=== PATIENT | female | born 1990 | race Caucasian/White ===

== ENCOUNTER 2021-01-18 06:29 | Inpatient (IN) | payer SELFPAY ==
[2021-01-18] MEDS: Lactated Ringers 1,000 ML IV SCH ×2 (06:40→09:02)
[2021-01-18] MEDS ORDERED: Sodium Chloride 0.9% 2.5 ML Syringe FLUSH PRN (07:06)
[2021-01-18] MEDS ORDERED: Lidocaine 1% 50 ML MDV INJECT PRN (07:06)
[2021-01-18] MEDS ORDERED: Methylergonovine 0.2 MG/1 ML Amp IM PRN (07:06)
[2021-01-18] MEDS ORDERED: Tranexamic Acid 1,000 MG in Sodium Chloride 0.9% 100 ML IV PRN (07:06)
[2021-01-18] MEDS ORDERED: Butorphanol 1 MG/ML SDV IVPUSH PRN (07:06)
[2021-01-18] MEDS ORDERED: Sodium Chloride 0.9% 20 ML SDV IV PRN (07:06)
[2021-01-18] MEDS ORDERED: Ondansetron 4 MG/2 ML SDV IVPUSH PRN (07:06)
[2021-01-18] MEDS ORDERED: Water For Irrigation,Sterile 1,000 ML Container IRR PRN (07:06)
[2021-01-18] MEDS ORDERED: Misoprostol 200 MCG Tab PO PRN (07:06)
[2021-01-18] MEDS ORDERED: Sodium Chloride 0.9% 10 ML Syringe FLUSH PRN (07:06)
[2021-01-18] MEDS ORDERED: Carboprost Tromethamine 250 MCG/1 ML Amp IM PRN (07:06)
[2021-01-18] MEDS ORDERED: Nalbuphine 10 MG/1 ML Vial IVPUSH PRN (07:06)
[2021-01-18] MEDS ORDERED: Oxytocin/0.9 % Sodium Chloride 30 UNIT/500 ML BAG IV SCH (07:15)
[2021-01-18] MEDS ORDERED: Ropivacaine HCl/PF 200 ML ONE (07:45)
[2021-01-18] MEDS ORDERED: ePHEDrine 50 MG/ML SDV IVPUSH PRN (08:00)
[2021-01-18] MEDS ORDERED: Ropivacaine/PF 400 MG/200 ML PCA EPIDUR SCH (08:00)
--- NOTE | 2021-01-18 08:02 | PCM.PREANE ---
Preanesthetic Assessment - Anesthesia/Transfusion/Family Hx Anesthesia History: Prior Anesthesia Without Reaction (Prior Epidural) Family History of Anesthesia Reaction: No Transfusion History: No Prior Transfusion(s) - Review of Systems General: No Symptoms Pulmonary: No Symptoms Cardiovascular: No Symptoms Gastrointestinal: No Symptoms Neurological: No Symptoms Other: Reports: None - Physical Assessment NPO Status Date: 01/18/21 NPO Status Time: 07:00 ASA Class: 2 Mental Status: Alert & Oriented x3 Airway Class: Mallampati = 2 Dentition: Reports: Normal Dentition Thyro-Mental Finger Breadths: 3 Mouth Opening Finger Breadths: 3 ROM/Head Extension: Full Lungs: Clear to Auscultation, Normal Respiratory Effort Cardiovascular: Regular Rate, Regular Rhythm - Lab Values: Laboratory Last Values WBC 10.30 K/uL (4.0-11.0) 01/18/21 06:40 RBC 4.23 M/uL (4.30-5.90) L 01/18/21 06:40 Hgb 13.3 g/dL (12.0-16.0) 01/18/21 06:40 Hct 38.4 % (36.0-46.0) 01/18/21 06:40 MCV 90.8 fL (80.0-98.0) 01/18/21 06:40 MCH 31.4 pg (27.0-32.0) 01/18/21 06:40 MCHC 34.6 g/dL (31.0-37.0) 01/18/21 06:40 RDW Std Deviation 44.0 fl (28.0-62.0) 01/18/21 06:40 RDW Coeff of Farhan 13 % (11.0-15.0) 01/18/21 06:40 Plt Count 197 K/uL (150-400) 01/18/21 06:40 MPV 10.70 fL (7.40-12.00) 01/18/21 06:40 Nucleated RBC % 0.0 /100WBC 01/18/21 06:40 Nucleated RBCs # 0 K/uL 01/18/21 06:40 - Allergies Allergies/Adverse Reactions: Allergies Allergy/AdvReac Type Severity Reaction Status Date / Time No Known Allergies Allergy Verified 10/10/15 09:42 - Blood Blood Available: Yes Product(s) Available: PRBC - Anesthesia Plan Pre-Op Medication Ordered: None - Acknowledgements Anesthesia Type Planned: Epidural Pt an Appropriate Candidate for the Planned Anesthesia: Yes Alternatives and Risks of Anesthesia Discussed w Pt/Guardian: Yes Pt/Guardian Understands and Agrees with Anesthesia Plan: Yes PreAnesthesia Questionnaire Musculoskeletal History: Reports: Fracture Other Musculoskeletal History: Thumb pinning as a child - Past Surgical History Musculoskeletal Surgical History: Reports: None Other Musculoskeletal Surgeries/Procedures:: finger pinning as a child - CURRENT (IN HOUSE) MEDS Current Meds: Current Medications Butorphanol Tartrate (Butorphanol 1 Mg/Ml Sdv) 1 mg IVPUSH Q1H PRN PRN Reason: Pain (severe 7-10) Carboprost Tromethamine (Carboprost Tromethamine 250 Mcg/1 Ml Amp) 250 mcg IM ASDIRECTED PRN PRN Reason: Post Hemorrhage Oxytocin/Sodium Chloride (Oxytocin 30 Unit In Ns 0.9% 500 Ml Premix) 30 unit in 500 mls @ 999 mls/hr IV TITRATE SHAYAN Tranexamic Acid 1,000 mg/ (Sodium Chloride) 110 mls @ 660 mls/hr IV ONETIME PRN PRN Reason: Bleeding Lactated Ringer's (Ringers, Lactated) 1,000 mls @ 150 mls/hr IV ASDIRECTED SHAYAN Lidocaine HCl (Lidocaine 1% 50 Ml Mdv) 50 ml INJECT ONETIME PRN PRN Reason: Laceration repair Methylergonovine Maleate (Methylergonovine 0.2 Mg/1 Ml Amp) 0.2 mg IM ASDIRECTED PRN PRN Reason: Post Hemorrhage Misoprostol (Misoprostol 200 Mcg Tab) 200 mcg PO ONETIME PRN PRN Reason: Post Hemorrhage Nalbuphine HCl (Nalbuphine 10 Mg/1 Ml Vial) 10 mg IVPUSH Q1H PRN PRN Reason: Pain (severe 7-10) Ondansetron HCl (Ondansetron 4 Mg/2 Ml Sdv) 4 mg IVPUSH Q4H PRN PRN Reason: Nausea/Vomiting Sodium Chloride (Sodium Chloride 0.9% 10 Ml Syringe) 10 ml FLUSH ASDIRECTED PRN PRN Reason: Keep Vein Open Sodium Chloride (Sodium Chloride 0.9% 2.5 Ml Syringe) 2.5 ml FLUSH ASDIRECTED PRN PRN Reason: Keep Vein Open Sodium Chloride (Sodium Chloride 0.9% 20 Ml Sdv) 10 ml IV ASDIRECTED PRN PRN Reason: IV Use Sterile Water (Water For Irrigation,Sterile 1,000 Ml Container) 1,000 ml IRR ASDIRECTED PRN PRN Reason: delivery Discontinued Medications Ropivacaine (Naropin 0.2%) Confirm Administered Dose 200 mls @ as [facility] Stop: 01/18/21 07:46
--- NOTE | 2021-01-18 08:07 | PCM.SN.2 ---
- Pre-Procedure Checklist Attending Provider Aware: Yes Chart Reviewed: Yes Consent Signed: Yes Labs Reviewed: Yes VS/FHR Reviewed: Yes Patient Identification Confirmation Method: Reports: Chart Visual, Verbal Patient Pt an Appropriate Candidate for the Planned Anesthesia: Yes Alternatives and Risks of Anesthesia Discussed w Pt/Guardian: Yes - Procedure Procedure Start Date: 01/18/21 Procedure Start Time: 07:[address]: Reports: Blood Pressure, Heart Rate Functional IV: Yes Bolus Infused (fluid type and amount): 1000 ML LR Safety Measures: Reports: Patient Identified, Procedure Verified, Site Verified, Procedure Time Out Patient Position: Reports: Sitting Prep: Reports: Betadine x3 Local Anesthetic: Reports: Intradermal Wheal w Lidocaine 1% (3 ML) Regional Placement Level: Reports: L3-4 Needle: Reports: 17 g Touhy Approach: Reports: Midline Technique: Reports: CHINTAN Glass Syringe CHINTAN Needle Depth (cm): 6 cm Parasthesia: Reports: None Fluid Obtained: Reports: None Catheter Depth at Skin (cm): 15 cm Test Dose Time: 07:40 Test Dose Medication: Reports: Lidocaine 1.5% w Epinephrine 1:200,000 (5 ml) Test Dose Response: Reports: Negative Loading Dose Time: 07:48 Loading Dose Medication: Ropivicaine 0.2% Loading Dose Patient Position: Supine Continuous Infusion Start Time: 07:49 Continuous Infusion Medication: Ropivicaine 0.2% Continuous Infusion Rate: 14 Continuous Infusion PCS Bolus Option: 6 Continuous Infusion Lockout Dose (cc/hr): 15 Patient Position Post Placement: Reports: Supline/TYLER Post-procedure Pain Level: Unable to assess level as patient is 10 cms and physician called to perform delivery, although patient does describe pain as better. Of note RN called 10 min prior to start to request epidural and states patient is 6 CM. VS and FHR Monitored in Unit Post Placement: Yes Procedure End Date: 01/18/21 Procedure End Time: 08:34 Procedure Comment: Steril technique maintained throughout.
--- NOTE | 2021-01-18 08:09 | PCM.POSTAN ---
POST ANESTHESIA ASSESSMENT - MENTAL STATUS Mental Status: Alert, Oriented - RESPIRATORY Respiratory Status: Respiratory Rate WNL, Airway Patent, O2 Saturation Stable - CARDIOVASCULAR CV Status: Pulse Rate WNL, Blood Pressure Stable - GASTROINTESTINAL GI Status: No Symptoms - POST OP HYDRATION Hydration Status: Adequate & Stable
[2021-01-18] MEDS ORDERED: Witch Hazel Medicated Pads 40/Jar TOP PRN (09:08)
[2021-01-18] MEDS ORDERED: Benzocaine/Menthol 20%-0.5% Spray 78 GM Cannister TOP PRN (09:08)
[2021-01-18] MEDS ORDERED: Lanolin 100% Cream 7 GM Tube TOP PRN (09:08)
[2021-01-18] MEDS ORDERED: Bisacodyl 10 MG Supp RECTAL PRN (09:08)
[2021-01-18] MEDS ORDERED: oxyCODONE 5 MG Tab PO PRN (09:08)
[2021-01-18] MEDS ORDERED: Docusate Sodium 100 MG Cap PO PRN (09:08)
[2021-01-18] MEDS ORDERED: Acetaminophen 500 MG Tab PO PRN ×2 (09:08)
[2021-01-18] MEDS ORDERED: Ibuprofen 400 MG Tab PO PRN (09:08)
[2021-01-18] MEDS ORDERED: Ibuprofen 800 MG Tab PO PRN (09:08)
--- NOTE | 2021-01-18 09:08 | PCM.LDHP ---
L&D History of Present Illness - General Date of Service: 01/18/21 Admit Problem/Dx: Patient Status Order with Admit Dx/Problem 01/18/21 07:07 Patient Status [ADT] Routine Admission Diagnosis/Problem Admission Diagnosis/Problem Source of Information: Patient History Limitations: Reports: No Limitations - History of Present Illness Improves with: Reports: None Worsens with: Reports: None Associated Symptoms: Reports: N - Related Data Allergies/Adverse Reactions: Allergies Allergy/AdvReac Type Severity Reaction Status Date / Time No Known Allergies Allergy Verified 10/10/15 09:42 Past Medical History Musculoskeletal History: Reports: Fracture Other Musculoskeletal History: Thumb pinning as a child - Past Surgical History Musculoskeletal Surgical History: Reports: None Other Musculoskeletal Surgeries/Procedures:: finger pinning as a child Social & Family History - Family History Family Medical History: No Pertinent Family History HEENT: Reports: None H&P Review of Systems - Review of Systems: Review Of Systems: See Below General: Reports: No Symptoms HEENT: Reports: No Symptoms Pulmonary: Reports: No Symptoms Cardiovascular: Reports: No Symptoms Gastrointestinal: Reports: No Symptoms Genitourinary: Reports: No Symptoms Musculoskeletal: Reports: No Symptoms Skin: Reports: No Symptoms Psychiatric: Reports: No Symptoms Neurological: Reports: No Symptoms Hematologic/Lymphatic: Reports: No Symptoms Immunologic: Reports: No Symptoms L&D Exam - Exam Exam: See Below - OB Specific Contraction Intensity: Moderate to Strong Movement: Active Heart Tones: Present Presentation: Vertex - Gomes Score Gomes Score Cervix Position: Anterior Gomes Score Consistency: Soft Gomes Score Effacement: >80% Gomes Score Dilation: > 5 cm Gomes Score 's Station: -1 ,0 Gomes Score Total: 12 - Exam General: Alert, Oriented HEENT: PERRLA, Conjunctiva Clear, EACs Clear, EOMI, Hearing Intact, Mucosa Moist & [place], Nares Patent, Normal Nasal Septum, Posterior Pharynx Clear, TMs Clear Neck: Supple, Trachea Midline Lungs: Clear to Auscultation, Normal Respiratory Effort Cardiovascular: Regular Rate, Regular Rhythm GI/Abdominal Exam: Normal Bowel Sounds, Soft, Non-Tender, No Organomegaly, No Distention, No Abnormal Bruit, No Mass, Pelvis Stable Rectal Exam: Normal Exam, Normal Rectal Tone Genitourinary: Normal external exam, Normal bimanual exam, Normal speculum exam Back Exam: Normal Inspection, Full Range of Motion Extremities: Normal Inspection, Normal Range of Motion, Non-Tender, No Pedal Ed lashanda, Normal Capillary Refill Skin: Warm, Dry, Intact Neurological: Cranial Nerves Intact, Reflexes Equal Bilateral Psychiatric: Alert, Normal Affect, Normal Mood - Patient Data Lab Results Last 24 hrs: Laboratory Results - last 24 hr 01/18/21 01/18/21 Range/Units 06:40 06:50 WBC 10.30 (4.0-11.0) K/uL RBC 4.23 L (4.30-5.90) M/uL Hgb 13.3 (12.0-16.0) g/dL Hct 38.4 (36.0-46.0) % MCV 90.8 (80.0-98.0) fL MCH 31.4 (27.0-32.0) pg MCHC 34.6 (31.0-37.0) g/dL RDW Std Deviation 44.0 (28.0-62.0) fl RDW Coeff of Farhan 13 (11.0-15.0) % Plt Count 197 (150-400) K/uL MPV 10.70 (7.40-12.00) fL Nucleated RBC % 0.0 /100WBC Nucleated RBCs # 0 K/uL SARS-CoV-2 RNA (GARY) NEGATIVE (NEGATIVE) Result Diagrams: 01/18/21 06:40 Problem List Initiated/Reviewed/Updated: Yes Orders Last 24hrs: Active Orders 24 hr Category Date Time Status Patient Status [ADT] Routine ADT 01/18/21 07:07 Active Communication Order [RC] PRN Care 01/18/21 08:00 Active Heart Tones [RC] CONTINUOUS Care 01/18/21 07:07 Active Non Stress Test [RC] PER UNIT ROUTINE Care 01/18/21 07:07 Active May Shower [RC] ASDIRECTED Care 01/18/21 07:07 Active Notify Provider [RC] PRN Care 01/18/21 07:07 Active Up ad Ami [RC] ASDIRECTED Care 01/18/21 07:07 Active Vaginal Exam [RC] PRN Care 01/18/21 07:07 Active Vital Signs [RC] PER UNIT ROUTINE Care 01/18/21 07:07 Active RPR (SYPHILIS SERO) W/ RFLX [REF] Routine Lab 01/18/21 06:40 Received TYPE AND SCREEN [BBK] Routine Lab 01/18/21 06:40 Received Butorphanol [Stadol] Med 01/18/21 07:06 Active 1 mg IVPUSH Q1H PRN Carboprost Tromethamine [Hemabate DS] Med 01/18/21 07:06 Active 250 mcg IM ASDIRECTED PRN Lactated Ringers [Ringers, Lactated] 1,000 ml Med 01/18/21 07:15 Active IV ASDIRECTED Lidocaine 1% [Xylocaine 1%] Med 01/18/21 07:06 Active 50 ml INJECT ONETIME PRN Methylergonovine [Methergine] Med 01/18/21 07:06 Active 0.2 mg IM ASDIRECTED PRN Nalbuphine [Nubain] Med 01/18/21 07:06 Active 10 mg IVPUSH Q1H PRN Ondansetron [Zofran] Med 01/18/21 07:06 Active 4 mg IVPUSH Q4H PRN Oxytocin/0.9 % Sodium Chloride [Oxytocin 30 Unit in NS Med 01/18/21 07:15 Active 0.9% 500 ML Premix] 30 unit in 500 ml IV TITRATE Phenylephrine HCl In 0.9% NaCl [Phenylephrine 1 MG/10 Med 01/18/21 08:00 Active ML-NS] 0.1 mg IVPUSH Q1M PRN Ropivacaine HCl/PF [Ropivacaine 0.2% DIALYSIS REGISTERED NURSE 400 MG in 200 Med 01/18/21 08:00 Active ML] 400 mg EPIDUR ASDIRECTED Sodium Chloride 0.9% [Normal Saline] Med 01/18/21 07:06 Active 10 ml IV ASDIRECTED PRN Sodium Chloride 0.9% [Saline Flush] Med 01/18/21 07:06 Active 10 ml FLUSH ASDIRECTED PRN Sodium Chloride 0.9% [Saline Flush] Med 01/18/21 07:06 Active 2.5 ml FLUSH ASDIRECTED PRN Tranexamic Acid [Cyklokapron] 1,000 mg Med 01/18/21 07:06 Active Sodium Chloride 0.9% [Normal Saline] 100 ml IV ONETIME Water For Irrigation,Sterile [Sterile Water for Med 01/18/21 07:06 Active Irrigation] 1,000 ml IRR ASDIRECTED PRN ePHEDrine [ePHEDrine sulfate] Med 01/18/21 08:00 Active 10 mg IVPUSH Q1M PRN miSOPROStoL [Cytotec] Med 01/18/21 07:06 Active 200 mcg PO ONETIME PRN Scalp Electrode [WOMSER] Per Unit Routine Oth 01/18/21 07:07 Ordered Peripheral IV Insertion Adult [OM.PC] Routine Oth 01/18/21 07:07 Ordered Resuscitation Status Routine Resus Stat 01/18/21 07:06 Ordered Medication Orders Butorphanol Tartrate (Butorphanol 1 Mg/Ml Sdv) 1 mg IVPUSH Q1H PRN PRN Reason: Pain (severe 7-10) Carboprost Tromethamine (Carboprost Tromethamine 250 Mcg/1 Ml Amp) 250 mcg IM ASDIRECTED PRN PRN Reason: Post Hemorrhage Ephedrine Sulfate (Ephedrine 50 Mg/Ml Sdv) 10 mg IVPUSH Q1M PRN PRN Reason: Hypotension Oxytocin/Sodium Chloride (Oxytocin 30 Unit In Ns 0.9% 500 Ml Premix) 30 unit in 500 mls @ 999 mls/hr IV TITRATE [facility] Tranexamic Acid 1,000 mg/ (Sodium Chloride) 110 mls @ 660 mls/hr IV ONETIME PRN PRN Reason: Bleeding Lactated Ringer's (Ringers, Lactated) 1,000 mls @ 150 mls/hr IV ASDIRECTED SHAYAN Last Admin: 01/18/21 09:02 Dose: 999 mls/hr Documented by: Infusion: 01/18/21 07:41 Dose: 999 mls/hr Documented by: Admin: 01/18/21 06:40 Dose: 999 mls/hr Documented by: IVON Lidocaine HCl (Lidocaine 1% 50 Ml Mdv) 50 ml INJECT ONETIME PRN PRN Reason: Laceration repair Methylergonovine Maleate (Methylergonovine 0.2 Mg/1 Ml Amp) 0.2 mg IM ASDIRECTED PRN PRN Reason: Post Hemorrhage Miscellaneous Medication (Phenylephrine Hcl In 0.9% Nacl 1 Mg/10 Ml Syringe) 0.1 mg IVPUSH Q1M PRN PRN Reason: Hypotension Misoprostol (Misoprostol 200 Mcg Tab) 200 mcg PO ONETIME PRN PRN Reason: Post Hemorrhage Nalbuphine HCl (Nalbuphine 10 Mg/1 Ml Vial) 10 mg IVPUSH Q1H PRN PRN Reason: Pain (severe 7-10) Ondansetron HCl (Ondansetron 4 Mg/2 Ml Sdv) 4 mg IVPUSH Q4H PRN PRN Reason: Nausea/Vomiting Ropivacaine (Ropivacaine/Pf 400 Mg/200 Ml Resin Shaver) 400 mg EPIDUR ASDIRECTED SHAYAN Sodium Chloride (Sodium Chloride 0.9% 10 Ml Syringe) 10 ml FLUSH ASDIRECTED PRN PRN Reason: Keep Vein Open Sodium Chloride (Sodium Chloride 0.9% 2.5 Ml Syringe) 2.5 ml FLUSH ASDIRECTED PRN PRN Reason: Keep Vein Open Sodium Chloride (Sodium Chloride 0.9% 20 Ml Sdv) 10 ml IV ASDIRECTED PRN PRN Reason: IV Use Sterile Water (Water For Irrigation,Sterile 1,000 Ml Container) 1,000 ml IRR ASDIRECTED PRN PRN Reason: delivery Assessment/Plan Comment:: 30 years old patient part 2001 in active labor GBS is negative the admitted at 6 cm complete vertex and -3 with a spontaneous rupture of the membrane clear amniotic fluid. Anticipating normal spontaneous vaginal delivery.
[2021-01-19 04:51] VITALS: PULSE 80
[2021-01-19 07:48] VITALS: BP 112/64
--- NOTE | 2021-01-19 08:00 | OR ---
SURGEON: Julio Cesar Brewster MD DATE OF PROCEDURE: 01/18/2021 DELIVERY NOTE: Ms. Deng is a 30-year-old patient. She is para 2-0-0-2. She is followed in our clinic. She had an uncomplicated care. Her GBS status is negative. Her diabetes screen was normal. The patient is admitted early this morning in active labor. At the time of admission, she was 6 cm, complete, vertex, and -3. With spontaneous rupture of the membrane and clear amniotic fluid, the patient had epidural anesthesia for labor analgesia. She was calvin regularly, and pretty soon went to complete, complete, vertex and she was able to accomplish normal spontaneous vaginal delivery of a male fetus. score reported to be 8 and 9 and the weight is 7 pounds 7 ounces. The placenta delivered spontaneous, complete, and intact. There was 1 nuchal cord. There was no perineal, labial, or vaginal laceration. heart rate was category 1 through the entire process of labor. Estimated blood loss was 300 to 350 mL. There was no complication in the labor and delivery process of this patient. NEREIDA / KARL /[id number]
--- NOTE | 2021-01-19 09:26 | PCM.PNPP ---
- General Info Date of Service: 01/19/21 Functional Status: Reports: Pain Controlled - Review of Systems General: Reports: No Symptoms HEENT: Reports: No Symptoms Pulmonary: Reports: No Symptoms Cardiovascular: Reports: No Symptoms Gastrointestinal: Reports: No Symptoms Genitourinary: Reports: No Symptoms Musculoskeletal: Reports: No Symptoms Skin: Reports: No Symptoms Neurological: Reports: No Symptoms Psychiatric: Reports: No Symptoms - General Info Date of Service: 01/19/21 - Patient Data Vital Signs - Most Recent: Last Vital Signs Temp 36.5 C 01/19/21 07:47 Pulse 80 01/19/21 07:47 Resp 18 01/19/21 07:47 BP 112/64 01/19/21 07:47 Pulse Ox 96 01/19/21 07:47 Weight - Most Recent: 95.708 kg Lab Results - Last 24 Hours: Laboratory Results - last 24 hr 01/18/21 01/19/21 Range/Units 06:40 05:55 Hgb 11.6 L (12.0-16.0) g/dL Hct 34.9 L (36.0-46.0) % Blood Type O POSITIVE Antibody Screen NEGATIVE Med Orders - Current: Current Medications Acetaminophen (Acetaminophen 500 Mg Tab) 500 mg PO Q4H PRN PRN Reason: Pain (mild 1-3) Acetaminophen (Acetaminophen 500 Mg Tab) 1,000 mg PO Q4H PRN PRN Reason: Pain (mild 1-3) Last Admin: 01/18/21 16:52 Dose: 1,000 mg Documented by: Benzocaine/Menthol (Benzocaine/Menthol 20%-0.5% [place] 78 Gm Cannister) 78 gm TOP ASDIRECTED PRN PRN Reason: Perineal Comfort Measure Last Admin: 01/18/21 11:00 Dose: 1 bottle Documented by: Bisacodyl (Bisacodyl 10 Mg Supp) 10 mg RECTAL ONETIME PRN PRN Reason: Constipation Butorphanol Tartrate (Butorphanol 1 Mg/Ml Sdv) 1 mg IVPUSH Q1H PRN PRN Reason: Pain (severe 7-10) Carboprost Tromethamine (Carboprost Tromethamine 250 Mcg/1 Ml Amp) 250 mcg IM ASDIRECTED PRN PRN Reason: Post Hemorrhage Docusate Sodium (Docusate Sodium 100 Mg Cap) 100 mg PO Q12H PRN PRN Reason: Constipation Emollient Ointment (Lanolin 100% Cream 7 Gm Tube) 1 gm TOP ASDIRECTED PRN PRN Reason: Sore Nipples Ephedrine Sulfate (Ephedrine 50 Mg/Ml Sdv) 10 mg IVPUSH Q1M PRN PRN Reason: Hypotension Oxytocin/Sodium Chloride (Oxytocin 30 Unit In Ns 0.9% 500 Ml Premix) 30 unit in 500 mls @ 999 mls/hr IV TITRATE [facility] Last Admin: 01/18/21 08:17 Dose: 999 mls/hr Documented by: Tranexamic Acid 1,000 mg/ (Sodium Chloride) 110 mls @ 660 mls/hr IV ONETIME PRN PRN Reason: Bleeding Lactated Ringer's (Ringers, Lactated) 1,000 mls @ 150 mls/hr IV ASDIRECTED [facility] Last Admin: 01/18/21 09:02 Dose: 999 mls/hr Documented by: Ibuprofen (Ibuprofen 400 Mg Tab) 400 mg PO Q4H PRN PRN Reason: Pain (mild 1-3) Ibuprofen (Ibuprofen 800 Mg Tab) 800 mg PO Q6H PRN PRN Reason: Cramping Last Admin: 01/18/21 11:02 Dose: 800 mg Documented by: Lidocaine HCl (Lidocaine 1% 50 Ml Mdv) 50 ml INJECT ONETIME PRN PRN Reason: Laceration repair Methylergonovine Maleate (Methylergonovine 0.2 Mg/1 Ml Amp) 0.2 mg IM ASDIRECTED PRN PRN Reason: Post Hemorrhage Miscellaneous Medication (Phenylephrine Hcl In 0.9% Nacl 1 Mg/10 Ml Syringe) 0.1 mg IVPUSH Q1M PRN PRN Reason: Hypotension Misoprostol (Misoprostol 200 Mcg Tab) 200 mcg PO ONETIME PRN PRN Reason: Post Hemorrhage Nalbuphine HCl (Nalbuphine 10 Mg/1 Ml Vial) 10 mg IVPUSH Q1H PRN PRN Reason: Pain (severe 7-10) Ondansetron HCl (Ondansetron 4 Mg/2 Ml Sdv) 4 mg IVPUSH Q4H PRN PRN Reason: Nausea/Vomiting Oxycodone HCl (Oxycodone 5 Mg Tab) 5 mg PO Q2H PRN PRN Reason: Pain (severe 7-10) Ropivacaine (Ropivacaine/Pf 400 Mg/200 Ml [employer]ending Relationship Manager) 400 mg EPIDUR ASDIRECTED SHAYAN Sodium Chloride (Sodium Chloride 0.9% 10 Ml Syringe) 10 ml FLUSH ASDIRECTED PRN PRN Reason: Keep Vein Open Sodium Chloride (Sodium Chloride 0.9% 2.5 Ml Syringe) 2.5 ml FLUSH ASDIRECTED PRN PRN Reason: Keep Vein Open Sodium Chloride (Sodium Chloride 0.9% 20 Ml Sdv) 10 ml IV ASDIRECTED PRN PRN Reason: IV Use Sterile Water (Water For Irrigation,Sterile 1,000 Ml Container) 1,000 ml IRR ASDIRECTED PRN PRN Reason: delivery Last Admin: 01/18/21 09:08 Dose: 1,000 ml Documented by: Grace Rosales (Grace Rosales Medicated Pads 40/Jar) 1 pad TOP ASDIRECTED PRN PRN Reason: comfort care Last Admin: 01/18/21 10:59 Dose: 1 tub Documented by: Discontinued Medications Ropivacaine (Naropin 0.2%) Confirm Administered Dose 200 mls @ as directed .ROUTE .[facility] ONE Stop: 01/18/21 07:46 Last Admin: 01/18/21 20:29 Dose: Not Given Documented by: - Interaction Infant Disposition, : in Room with Family Infant Interaction: Holding Feeding: Attempted ; Nursed Fair/Poor Support Person: - Recovery Exam Fundal Tone: Firm Fundal Level: 2 Fingerbreadths Below Umbilicus Fundal Placement: Midline Lochia Amount: Scant Lochia Color: Rubra/Red Perineum Description: Intact, Minimal Bruising/Swelling Episiotomy/Laceration: None Bladder Status: Voiding Urinary Elimination: Voided - Exam General: Alert, Oriented HEENT: Pupils Equal Neck: Supple Lungs: Clear to Auscultation, Normal Respiratory Effort Cardiovascular: Regular Rate, Regular Rhythm GI/Abdominal Exam: Normal Bowel Sounds, Soft, Non-Tender, No Organomegaly, No Distention, No Abnormal Bruit, No Mass, Pelvis Stable Extremities: Normal Inspection, Normal Range of Motion, Non-Tender, No Pedal Edema, Normal Capillary Refill Skin: Warm, Dry, Intact Wound/Incisions: Healing Well Neurological: No New Focal Deficit Psy/Mental Status: Alert, Normal Affect, Normal Mood - Problem List Review Problem List Initiated/Reviewed/Updated: Yes - My Orders Last 24 Hours: My Active Orders 01/18/21 09:08 Patient Status [ADT] Routine May Shower [RC] ASDIRECTED Up ad Ami [RC] ASDIRECTED Acetaminophen [Tylenol Extra Strength] 1,000 mg PO Q4H PRN Acetaminophen [Tylenol Extra Strength] 500 mg PO Q4H PRN Benzocaine/Menthol [Dermoplast Pain Relief 20%-0.5% [place]] 78 gm TOP ASDIRECTED PRN Docusate Sodium [Colace] 100 mg PO Q12H PRN Ibuprofen [Motrin] 400 mg PO Q4H PRN Ibuprofen [Motrin] 800 mg PO Q6H PRN Lanolin [Lansinoh HPA] 1 gm TOP ASDIRECTED PRN bisacodyL [Dulcolax] 10 mg RECTAL ONETIME PRN oxyCODONE 5 mg PO Q2H PRN witch Pietro [Tucks] 1 pad TOP ASDIRECTED PRN Assess Lochia [WOMSER] Per Unit Routine Assess Uterine Involution [WOMSER] Per Unit Routine Peripheral IV Discontinue [OM.PC] Routine 01/18/21 Lunch Regular Diet [DIET] - Assessment Assessment:: Status post normal spontaneous vaginal delivery no complication minimal vaginal bleeding patient ambulatory she is going home today - Plan Plan:: 30 years old patient part 2001 in active labor GBS is negative the admitted at 6 cm complete vertex and -3 with a spontaneous rupture of the membrane clear amniotic fluid. Anticipating normal spontaneous vaginal delivery.
--- NOTE | 2021-01-19 09:57 | PCM48HPAN ---
Post Anesthesia Note - EVALUATION WITHIN 48HRS OF ANESTHETIC Vital Signs in Normal Range: Yes Patient Participated in Evaluation: Yes Respiratory Function Stable: Yes Airway Patent: Yes Cardiovascular Function Stable: Yes Hydration Status Stable: Yes Pain Control Satisfactory: Yes Nausea and Vomiting Control Satisfactory: Yes Mental Status Recovered: Yes Vital Signs: Last Vital Signs Temp 36.5 C 01/19/21 07:47 Pulse 80 01/19/21 07:47 Resp 18 01/19/21 07:47 BP 112/64 01/19/21 07:47 Pulse Ox 96 01/19/21 07:47 - COMMENTS/OBSERVATIONS Free Text/Narrative:: Pt states to being satisfied with epidural analgesia. pt had been walking in hallway with no residual N/T or weakness.
== END 2021-01-19 11:53 | disposition home or self-care (01) | DRG 807 ==
LOC: MW.OBCHECK 06:29 → MW.OB 07:07 → OBSVTOIN 09:08 → MW.OB 11:45
PROVIDERS: ADMIT Obstetrics & Gynecology; ATTEND Obstetrics & Gynecology
PROC: 10E0XZZ Delivery of Products of Conception, External Approach (ICD-10-PCS; principal; 2021-01-18)
PROC: 3E0R3BZ Introduction of Anesthetic Agent into Spinal Canal, Percutaneous Approach (ICD-10-PCS; 2021-01-18)
PROC: 00HU33Z Insertion of Infusion Device into Spinal Canal, Percutaneous Approach (ICD-10-PCS; 2021-01-18)
DX: O80 Encounter for full-term uncomplicated delivery (principal); Z37.0 Single live birth; Z3A.38 38 weeks gestation of pregnancy; Z20.822 Contact with and (suspected) exposure to COVID-19
CPT/HCPCS: 01967; 36415; 59025; 59409; 85014; 85018; 85027; 86592; 86850; 86900; 86901; A9270-GY; J2590; J2795; J7120; U0002